=== PATIENT | female | born 1955 | race Two or more races ===

== ENCOUNTER → 2022-08-14 | Outpatient (CLI) | payer OTHER ==
[2022-08-14 11:24] LABS: Basophils # (auto) 0 10 ^3/uL (0-0.2); Basophils % (auto) 0.5 % (0.0-2.0); Eosinophils # (auto) 0.2 10 ^3/uL (0-0.8); Eosinophils % (auto) 2.2 % (0.0-7.0); Hemoglobin 12.3 g/dL (12.2-16.2); Lymphocytes % (auto) 29.1 % (10.0-50.0); Mean Corpuscular Hemoglobin 27.2 pg (28.0-32.0); Mean Corpuscular Hgb Conc. 32.5 g/dL (32.0-36.0); Mean Corpuscular Volume 83.8 fL (80.0-100.0); Monocytes # (auto) 0.6 10 ^3/uL (0-1.3); Monocytes % (auto) 5.7 % (0.0-12.0); Neutrophils # (auto) 6.5 10 ^3/uL (1.6-8.6); Neutrophils % (auto) 62.5 % (37.0-80.0); Red Blood Cells 4.53 10^6/uL (4.0-5.20); White Blood Cell 10.4 10^3/uL (4.4-10.8)
[2022-08-14 12:05] LABS: Urine Bacteria FEW /hpf (None Seen); Urine Blood Negative /uL (Negative); Urine Hyaline Cast FEW /lpf (0 - 2); Urine Mucus FEW (None Seen); Urine Specific Gravity 1.013 (1.001-1.035); Urine WBC 12 /hpf (0 - 5)
[2022-08-14 13:01] LABS: Albumin 3.4 g/dL (3.4-5.0); Calcium 9.4 mg/dL (8.5-10.1)
[2022-08-14 13:10] LABS: BUN/Creatinine Ratio 9.1; Bilirubin, Total 0.3 mg/dL (0.2-1.0); Total Protein 7.8 g/dL (6.4-8.2)
== END | disposition home or self-care (01) ==
LOC: LAB 11:07
PROVIDERS: ATTEND Internal Medicine
DX: I10 Essential (primary) hypertension (principal); R73.03 Prediabetes; E66.9 Obesity, unspecified
CPT/HCPCS: 36415; 80053; 80061; 81001; 82306; 83036; 84439; 84443; 85025

== ENCOUNTER → 2022-09-02 | Outpatient (CLI) | payer OTHER ==
[2022-09-02 14:12] LABS: Urine Bacteria NONE SEEN /hpf (None Seen); Urine Blood Negative /uL (Negative); Urine Specific Gravity 1.013 (1.001-1.035); Urine WBC 2 /hpf (0 - 5)
[2022-09-02 14:29] LABS: Albumin 3.5 g/dL (3.4-5.0); Bilirubin, Direct 0.1 mg/dL (0-0.2); Bilirubin, Total 0.4 mg/dL (0.2-1.0); Total Protein 7.8 g/dL (6.4-8.2)
== END | disposition home or self-care (01) ==
LOC: LAB 13:36
PROVIDERS: ATTEND Internal Medicine
DX: R82.90 Unspecified abnormal findings in urine (principal); E78.5 Hyperlipidemia, unspecified
CPT/HCPCS: 36415; 80076; 81001; 87086

== ENCOUNTER 2023-09-03 10:18 | Day surgery (SDC) | payer OTHER, MEDICAID ==
[2023-08-29 11:56] LABS: Basophils # (auto) 0 10 ^3/uL (0-0.2); Basophils % (auto) 0.4 % (0.0-2.0); Eosinophils # (auto) 0.3 10 ^3/uL (0-0.8); Eosinophils % (auto) 2.5 % (0.0-7.0); Hematocrit 38.7 % (36.0-46.0); Hemoglobin 12.7 g/dL (12.2-16.2); Lymphocytes # (auto) 2.8 10 ^3/uL (0.4-5.4); Lymphocytes % (auto) 24.7 % (10.0-50.0); Mean Corpuscular Hemoglobin 27.8 pg (28.0-32.0); Mean Corpuscular Hgb Conc. 32.8 g/dL (32.0-36.0); Mean Corpuscular Volume 84.9 fL (80.0-100.0); Monocytes # (auto) 0.7 10 ^3/uL (0-1.3); Monocytes % (auto) 6.3 % (0.0-12.0); Neutrophils # (auto) 7.4 10 ^3/uL (1.6-8.6); Neutrophils % (auto) 66.1 % (37.0-80.0); Red Blood Cells 4.56 10^6/uL (4.0-5.20); Red Cell Distribution Width 15.7 % (11.8-14.3); White Blood Cell 11.3 10^3/uL (4.4-10.8)
[2023-08-29 12:12] LABS: INR 0.98 (0.9-1.15); Partial Thromboplastin Time 30.2 SEC (24.5-34.5); Prothrombin Time 10.3 sec (9.3-11.8)
[2023-08-29 12:39] LABS: Urine Bacteria FEW /hpf (None Seen); Urine Blood Negative /uL (Negative); Urine Clarity HAZY (Clear); Urine Color Yellow (Yellow); Urine Protein, UAD Negative (Negative); Urine Specific Gravity 1.013 (1.001-1.035); Urine Urobilinogen Normal (Negative); Urine WBC 85 /hpf (0 - 5)
[2023-08-29 12:50] LABS: Alanine Aminotransferase 13 U/L (7-40); Albumin 4.4 g/dL (3.2-4.8); Alkaline Phosphatase 103 U/L (46-116); Anion Gap 7 (5-15); Aspartate Aminotransferase 14 U/L (13-40); BUN/Creatinine Ratio 8.1 (10.0-20.0); Bilirubin, Total 0.5 mg/dL (0.2-1.0); Blood Urea Nitrogen 8 mg/dL (9-23); Calcium 9.8 mg/dL (8.7-10.4); Carbon Dioxide 27 mmol/L (20-30); Chloride 108 mmol/L (98-107); Glucose 126 mg/dL (74-106); Potassium 3.2 mmol/L (3.5-5.1); Sodium 142 mmol/L (136-145); Total Protein 7.7 g/dL (5.7-8.2)
[~2023-09-03] VITALS: Ht 152.4 cm; Wt 122.5 kg
[~2023-09-03 10:18] MED LIST: ALBUAER3 IN; ALL100T PO; AMLO1TAB23 PO; ATOR20TA50 PO; BUDE1AER5 IN; DULO20CA PO; FURO40TA4 PO; HYDR-4297 PO; HYDR1SYP3 PO; HYOS0.1250 PO; LOSA100T58 PO; LUBI24CA6 PO; METH4TAB47 PO; METO25TA5 PO; MONT-8 OR; PANT40TA2 PO
[2023-09-03] MEDS ORDERED: SODIUM CHLORIDE LOCK 10 ML ONE (10:23)
[2023-09-03 11:36] VITALS: O2SAT 93
[2023-09-03] MEDS: MIDAZOLAM HCL 5 MG/ML-1ML VIAL ONE (11:44)
[2023-09-03] MEDS: diphenhdrAMINE HCL 50 MG/1 ML VL ONE (11:44)
[2023-09-03] MEDS: fentaNYL CITRATE 100 MCG/2 ML VL ONE (11:44)
[2023-09-03 12:07] VITALS: TEMP 98.7; O2SAT 100
[2023-09-03 12:52] VITALS: BP 154/99; PULSE 55; RESP 20; O2SAT 95
== END 2023-09-03 14:00 | disposition home or self-care (01) ==
LOC: GI 10:18
PROVIDERS: ATTEND Internal Medicine Gastroenterology
DX: R10.32 Left lower quadrant pain (principal); D12.3 Benign neoplasm of transverse colon; K64.8 Other hemorrhoids; K63.89 Other specified diseases of intestine; I10 Essential (primary) hypertension; E78.5 Hyperlipidemia, unspecified; J45.909 Unspecified asthma, uncomplicated; M10.9 Gout, unspecified; E66.9 Obesity, unspecified; Z88.6 Allergy status to analgesic agent; Z82.49 Family history of ischemic heart disease and other diseases of the circulatory system; Z80.8 Family history of malignant neoplasm of other organs or systems; Z79.899 Other long term (current) drug therapy; Z98.890 Other specified postprocedural states
CPT/HCPCS: 36415; 45385; 80053; 81001; 85025; 85610; 85730; 88305; J1200; J2250; J3010; J7030; 99152

== ENCOUNTER 2024-03-22 15:03 | Emergency (ER) | payer OTHER, MEDICAID ==
[~2024-03-22] VITALS: Ht 152.4 cm; Wt 121.2 kg
[~2024-03-22 15:03] MED LIST changes: -ALL100T PO; +DICY-89 PO; -HYDR-4297 PO; +HYDR10SY18 PO; -HYDR1SYP3 PO; +HYDR50TA47 PO; +LOSA-535 PO; -LOSA100T58 PO; -LUBI24CA6 PO; +LUBI24CA7 PO; +METH4TAB44 PO; -METH4TAB47 PO; +ROSU20TA14 PO; +ZONI100C43 PO
[2024-03-22 15:53] LABS: Basophils # (auto) 0.1 10 ^3/uL (0-0.2); Basophils % (auto) 0.5 % (0.0-2.0); Eosinophils # (auto) 0.3 10 ^3/uL (0-0.8); Eosinophils % (auto) 2.8 % (0.0-7.0); Hematocrit 36.5 % (36.0-46.0); Hemoglobin 12.6 g/dL (12.2-16.2); Lymphocytes # (auto) 2.8 10 ^3/uL (0.4-5.4); Lymphocytes % (auto) 23.6 % (10.0-50.0); Mean Corpuscular Hgb Conc. 34.5 g/dL (32.0-36.0); Mean Corpuscular Volume 84.1 fL (80.0-100.0); Monocytes # (auto) 0.9 10 ^3/uL (0-1.3); Monocytes % (auto) 7.4 % (0.0-12.0); Neutrophils # (auto) 7.8 10 ^3/uL (1.6-8.6); Neutrophils % (auto) 65.7 % (37.0-80.0); Platelet Count (auto) 322 10^3/uL (140-450); Red Blood Cells 4.34 10^6/uL (4.0-5.20); Red Cell Distribution Width 15.2 % (11.8-14.3); White Blood Cell 11.9 10^3/uL (4.4-10.8)
[2024-03-22 16:04] LABS: Chloride 106 mmol/L (98-107); Potassium 2.9 mmol/L (3.5-5.1); Sodium 141 mmol/L (136-145)
[2024-03-22 16:05] LABS: Anion Gap 9 (5-15); Calcium 10.6 mg/dL (8.7-10.4); Carbon Dioxide 26 mmol/L (20-30)
[2024-03-22 16:10] LABS: BUN/Creatinine Ratio 7.8 (10.0-20.0); Blood Urea Nitrogen 10 mg/dL (9-23); Glucose 119 mg/dL (74-106)
[2024-03-22] MEDS: POTASSIUM CHL 20 Meq TABLET PO ONE (18:13)
[2024-03-22 18:19] VITALS: BP 129/65; PULSE 63; RESP 15; TEMP 98; O2SAT 97
== END 2024-03-22 18:21 | disposition home or self-care (01) ==
LOC: ER 15:03
DX: E87.6 Hypokalemia (principal); R53.1 Weakness; I10 Essential (primary) hypertension; E78.5 Hyperlipidemia, unspecified; Z98.890 Other specified postprocedural states; Z88.8 Allergy status to other drugs, medicaments and biological substances; Z79.899 Other long term (current) drug therapy
CPT/HCPCS: 36415; 71046; 80048; 85025; 93005

== ENCOUNTER 2024-12-01 14:52 | Emergency (ER) | payer OTHER, MEDICAID ==
[~2024-12-01] VITALS: Ht 152.4 cm; Wt 120.8 kg
--- NOTE | 2024-12-01 16:45 | DVH ---
EXAM: XR Right Knee, 3 Views CLINICAL INDICATION: fall. r/o fracture TECHNIQUE: Three views of the right knee. COMPARISON: None FINDINGS: BONES/JOINTS: [id number] tricompartment degenerative changes. No acute fracture. No disloca tion. SOFT TISSUES: Unremarkable. OTHER FINDINGS: . . IMPRESSION: Ewya-gv-[id number] tricompartment degenerative changes.
[2024-12-01 16:50] VITALS: BP 133/64; PULSE 64; RESP 17; TEMP 98.1; O2SAT 97
[2024-12-01 16:51] LABS: Basophils # (auto) 0.1 10 ^3/uL (0-0.2); Basophils % (auto) 0.4 % (0.0-2.0); Eosinophils # (auto) 0.3 10 ^3/uL (0-0.8); Eosinophils % (auto) 2.2 % (0.0-7.0); Hematocrit 38.8 % (36.0-46.0); Hemoglobin 12.6 g/dL (12.2-16.2); Lymphocytes % (auto) 23.9 % (10.0-50.0); Mean Corpuscular Hgb Conc. 32.4 g/dL (32.0-36.0); Mean Corpuscular Volume 83.3 fL (80.0-100.0); Monocytes # (auto) 0.8 10 ^3/uL (0-1.3); Monocytes % (auto) 6.5 % (0.0-12.0); Neutrophils # (auto) 8.5 10 ^3/uL (1.6-8.6); Platelet Count (auto) 349 10^3/uL (140-450); Red Blood Cells 4.65 10^6/uL (4.0-5.20); Red Cell Distribution Width 15.6 % (11.8-14.3); White Blood Cell 12.7 10^3/uL (4.4-10.8)
[2024-12-01 17:01] LABS: Sodium 144 mmol/L (136-145)
[2024-12-01 17:02] LABS: Anion Gap 8 (5-15); Carbon Dioxide 28 mmol/L (20-31)
[2024-12-01 17:03] LABS: Urine Bacteria MANY /hpf (None Seen); Urine Blood Negative /uL (Negative); Urine Clarity Turbid (Clear); Urine Color Yellow (Yellow); Urine Hyaline Cast FEW /lpf (0 - 2); Urine Mucus FEW (None Seen); Urine Protein, UAD Negative (Negative); Urine Specific Gravity 1.014 (1.001-1.035); Urine Squamous Epithelial Cell MOD /hpf (<5); Urine Urobilinogen Normal (Negative); Urine WBC 35 /HPF (0-5); Urine WBC Clumps PRESENT /hpf (None Seen); Urine pH 5.5 (5.0-9.0)
[2024-12-01 17:06] LABS: Calcium 10.9 mg/dL (8.7-10.4); Chloride 108 mmol/L (98-107); Potassium 3.4 mmol/L (3.5-5.1)
[2024-12-01 17:07] LABS: BUN/Creatinine Ratio 10.8 (10.0-20.0); Blood Urea Nitrogen 13 mg/dL (9-23); Glucose 104 mg/dL (74-106)
--- NOTE | 2024-12-01 17:10 | ED.PDOC ---
Musculoskeletal HPI Comments A 69 year old female presents to the ED c/o right knee pain s/p fall. Patient states she accidentally twisted her right knee and fell 2-1/2 weeks ago. Patient reports she has been experiencing right knee pain with mild swelling since this injury. Patient states she went to her primary care physician today and was instructed to come to the ED for evaluation. Patient reports her pain is worse with movement and when bearing weight. Denies head injury, neck injury, LOC, fever, SOB, chest pain, abdominal pain, nausea, vomiting, diarrhea, headache, dizziness, vision changes, or numbness/tingling of extremities. No other symptoms or modifying factors reported at this time. Patient is alert and oriented x4 and has a stable gait. Chief Complaint: Lower Extremity Time Seen by MD: 15:57 Primary Care Provider: SRI Reviewed Notes: Nurses Notes, Medications, Allergies Allergies: Coded Allergies: Codeine (Verified Allergy, Mild, rash, 03/17/24) Home Meds Active Scripts Diclofenac Sodium (Topical) (Voltaren Arthritis Pain) 1 % Gel, 1 APPLIC EX Q6HP PRN for 10 Days, #60 GRAMS 0 Refills Prov:MCKENZIE OCHOA TRAVELER CHANGER 12/01/24 Acetaminophen (Acetaminophen) 500 Mg Tab, 500 MG PO Q8HP PRN for 10 Days, #30 TAB 0 Refills Prov:MCKENZIE OCHOA TRAVELER CHANGER 12/01/24 Nitrofurantoin Monohydrate Mac (Macrobid) 100 Mg Cap, 100 MG PO BID for 7 Days, #14 CAP 0 Refills Prov:MCKENZIE OCHOA TRAVELER CHANGER 12/01/24 Reported Medications Zonisamide (Zonisamide) 100 Mg Cap, 100 MG PO, CAP 03/17/24 Rosuvastatin Calcium (Crestor) 20 Mg Tab, 1 TAB PO DAILY, #30 TAB 5 Refills 03/17/24 Dicyclomine Hcl (Dicyclomine Hcl) 10 Mg Cap, 10 MG PO QID for 30 Days, MG 03/17/24 Budesonide-Formoterol Fumarate (Budesonide/Formoterol Fum 80-4.5 Mcg/Act) 1 Aer Aer, 1 AER IN, AER 02/19/23 Albuterol Sulfate (VENTOLIN MDI) 90 Mcg Ih, 90 MCG IN, INH 02/19/23 Lubiprostone (Amitiza) 24 Mcg Cap, 24 MCG PO, CAP 02/19/23 Montelukast Sodium (MONTELUKAST SODIUM) 10 Mg Tab, 10 MG OR HS, TAB 02/19/23 Hydralazine Hcl (Hydralazine Hcl) 50 Mg Tab, 50 MG PO, TAB 02/19/23 Furosemide (Furosemide) 40 Mg Tab, 40 MG PO DAILY, TAB 02/19/23 Amlodipine Besylate (Amlodipine Besylate) 10 Mg Tab, 10 MG PO DAILY, TAB 02/19/23 Hyoscyamine Sulfate (Levsin) 0.125 Mg Tab, 0.125 MG PO, TAB 02/19/23 Hydroxyzine Hcl (Hydroxyzine Hcl) 10 Mg/5 Ml Syp, 10 MG PO DAILY, SYP 02/19/23 Pantoprazole Sodium Sesquihydr (Protonix) 40 Mg Tab, 40 MG PO DAILY, #30 TAB 02/19/23 Metoprolol Tartrate (Metoprolol Tartrate) 25 Mg Tab, 25 MG PO DAILY, TAB 02/19/23 Duloxetine Hcl (Cymbalta) 20 Mg Cap, 20 MG PO DAILY, CAP 02/19/23 Losartan Potassium (Losartan Potassium) 100 Mg Tab, 100 MG PO DAILY, TAB 02/19/23 Atorvastatin Calcium (ATORVASTATIN CALCIUM) 20 Mg Tab, 20 MG PO DAILY, TAB 02/19/23 Methylprednisolone (Methylprednisolone) 4 Mg Tab, 4 MG PO DAILY, TAB 02/19/23 Information Source: Patient Mode of Arrival: Ambulatory Location: Right Extremity Location: Knee Timing: Weeks Prehospital treatment: None Severity: Moderate Able to Move Extremity: Yes Bear Weight: Limited Pain: Moderate Mechanism: Twisting Circumstances: Fall Onset of Symptoms: After Trauma Symptoms: Pain DVT Risk Factors: NONE Last Tetanus: Unknown Associated signs and symptoms: Knee pain Past Medical History PAST MEDICAL HISTORY: Arthritis, High Lipids, HTN Surgical History: Cholecystectomy, Hysterectomy CHIEF OF PRODUCTION History: No Pertinent CHIEF OF PRODUCTION History Family History Family History: Reviewed,noncontributory to illness, Family hx of DM, Family hx of heart nicolle Social History Smoker: Non-Smoker Alcohol: Denies ETOH Use Drugs: Denies Drug Use Lives In: Home Constitutional: denies: chills, diaphoresis, fatigue, fever, malaise, sweats, weakness, others EENTM: denies: blurred vision, double vision, ear bleeding, ear discharge, ear drainage, ear pain, ear ringing, eye pain, eye redness, hearing loss, mouth pain, mouth swelling, nasal discharge, nose bleeding, nose congestion, nose pain, photophobia, tearing, throat pain, throat swelling, voice changes, others Respiratory: denies: cough, hemoptysis, orthopnea, SOB at rest, shortness of breath, SOB with excertion, stridor, wheezing, others Cardiovascular: denies: chest pain, dizzy spells, diaphoresis, Dyspnea on exertion, edema, irregular heart beat, left arm pain, lightheadedness, palpitations, PND, syncope, others Gastrointestinal: denies: abdomen distended, abdominal pain, blood streaked bowels, constipated, diarrhea, dysphagia, difficulty swallowing, hematemesis, melena, nausea, poor appetite, poor fluid intake, rectal bleeding, rectal pain, vomiting, others Genitourinary: denies: abnormal vagina bleeding, burning, dyspareunia, dysuria, flank pain, frequency, hematuria, incontinence, pain, , vagina discharge, urgency, others Neurological: denies: dizziness, fainting, headache, left sided numbness, left sided weakness, numbness, paresthesia, pre-existing deficit, right sided numbness, right sided weakness, seizure, speech problems, tingling, tremors, weakness, others Musculoskeletal: reports: others (Right knee pain); denies: back pain, gout, joint pain, joint swelling, muscle pain, muscle stiffness, neck pain Integumetry: denies: bruises, change in color, change in hair/nails, dryness, laceration, lesions, lumps, rash, wounds, others Allergic/Immunocompromised: denies: Difficulty Healing, Frequent Infections, Hives, Itching, others Hematologic/Lymphatic: denies: anemia, blood clots, easy bleeding, easy bruising, swollen glands, others Endocrine: denies: excessive hunger, excessive sweating, excessive thirst, excessive urination, flushing, intolerance to cold, intolerance to heat, unexplained weight gain, unexplained weight loss, others Psychiatric: denies: anxiety, bipolar disorder, depression, hopeless, panic disorder, schizophrenia, sleepless, suicidal, others All Other Systems: Reviewed and Negative Physical Exam General Appearance: No Apparent Distress, Normal HEENT: Normal ENT Inspection, Pharynx Normal, TMs Normal Neck: Full Range of Motion, Non-Tender, Normal, Normal Inspection Respiratory: Chest Non-Tender, Lungs Clear, No Accessory Muscle Use, No Respiratory Distress, Normal Breath Sounds Cardiovascular: No Edema, No JVD, No Murmur, No Gallop, Regular Rate/Rhythm Breast Exam: Deferred Gastrointestinal: No Organomegaly, Non Tender, No Pulsatile Mass, Normal Bowel Sounds, Soft Genitalia: Deferred Pelvic: Deferred Rectal: Deferred Extremities: No calf tenderness, Normal capillary refill, Normal inspection, Normal range of motion, Non-tender, No pedal edema Musculoskeletal : Apperance: Normal Neurologic: Alert, natural science manager II-XII nml as Tested, No Motor Deficits, Normal Affect, Normal Mood, No Sensory Deficits, Other (Subjective pain with extension and flexion noted. No signs of deformity or injury. No Tenderness noted.) Cerebellar Function: Normal Reflexes: Normal Skin: Dry, Normal Color, Warm Lymphatic: No Adenopathy Was a procedure done? Was a procedure done?: No Other Procedure Procedure Right knee injection Indication DJD of right knee Anesthetic 4 mL of lidocaine Prep Sterile technique/preparation Success An incision was made into the patient's right inferior lateral patella region and 40 mg of Kenalog was injected into the patient's right knee. Informed consent obtained: Yes Risks, benefits, and alternati: Yes Differential Diagnosis EXT Differential Diagnosis: Fracture, Sprain, DJD, Strain, Arthritis X-Ray, Labs, Meds, VS Vital Signs Date Time Temp Pulse Resp B/P (MAP) Pulse Ox O2 Delivery O2 Flow Rate FiO2 12/01/24 16:50 98.1 64 17 133/64 (87) 97 98.1 12/01/24 16:50 64 17 97 Room Air 12/01/24 15:00 98.2 78 20 96/51 (66) 96 98.2 Lab Test 12/01/24 16:38 12/01/24 16:26 Range/Units White Blood Count 12.7 H 4.4-10.8 10^3/uL Red Blood Count 4.65 4.0-5.20 10^6/uL Hemoglobin 12.6 12.2-16.2 g/dL Hematocrit 38.8 36.0-46.0 % Mean Corpuscular Volume 83.3 80.0-100.0 fL Mean Corpuscular Hemoglobin 27.0 L 28.0-32.0 pg Mean Corpuscular Hemoglobin Concent 32.4 32.0-36.0 g/dL Red Cell Distribution Width 15.6 H 11.8-14.3 % Platelet Count 349 140-450 10^3/uL Mean Platelet Volume 8.5 6.9-10.8 fL Neutrophils (%) (Auto) 67.0 37.0-80.0 % Lymphocytes (%) (Auto) 23.9 10.0-50.0 % Monocytes (%) (Auto) 6.5 0.0-12.0 % Eosinophils (%) (Auto) 2.2 0.0-7.0 % Basophils (%) (Auto) 0.4 0.0-2.0 % Neutrophils # (Auto) 8.5 1.6-8.6 10 ^3/uL Lymphocytes # (Auto) 3.0 0.4-5.4 10 ^3/uL Monocytes # (Auto) 0.8 0-1.3 10 ^3/uL Eosinophils # (Auto) 0.3 0-0.8 10 ^3/uL Basophils # (Auto) 0.1 0-0.2 10 ^3/uL Nucleated Red Blood Cells 0.0 % Sodium Level 144 136-145 mmol/L Potassium Level 3.4 L 3.5-5.1 mmol/L Chloride Level 108 H 98-107 mmol/L Carbon Dioxide Level 28 20-31 mmol/L Anion Gap 8 5-15 Blood Urea Nitrogen 13 9-23 mg/dL Creatinine 1.20 H 0.550-1.02 mg/dL Glomerular Filtration Rate Calc 48 >90 mL/min BUN/Creatinine Ratio 10.8 10.0-20.0 Serum Glucose 104 74-106 mg/dL Calcium Level 10.9 H 8.7-10.4 mg/dL Urine Color Yellow Yellow Urine Clarity Turbid H Clear Urine pH 5.5 5.0-9.0 Urine Specific [place] 1.014 1.001-1.035 Urine Protein Negative Negative Urine Ketones Negative Negative Urine Blood Negative Negative /uL Urine Nitrite 1+ H Negative Urine Bilirubin Negative Negative Urine Urobilinogen Normal Negative mg/dL Urine Leukocyte Esterase 3+ Negative /uL Urine RBC 2 0 - 4 /hpf Urine WBC Clumps Present None Seen /hpf Urine Microscopic WBC 35 H 0-5 /HPF Urine Squamous Epithelial Cells Mod <5 /hpf Urine Bacteria Many H None Seen /hpf Urine Hyaline Casts Few 0 - 2 /lpf Urine Mucus Few None Seen Urine Glucose Normal Normal mg/dL Current Medications Medications (Trade) Dose Ordered Sig/Darrick Route Start Time Stop Time Status Last Admin Ceftriaxone Sodium (Rocephin) 1,000 mg ONCE ONCE IM 12/01/24 17:15 12/01/24 17:21 DC 12/01/24 17:42 EXAM: XR Right Knee, 3 Views CLINICAL INDICATION: fall. r/o fracture TECHNIQUE: Three views of the right knee. COMPARISON: None FINDINGS: BONES/JOINTS: Newp-yx-[id number] tricompartment degenerative changes. No acute fracture. No dislocation. SOFT TISSUES: Unremarkable. OTHER FINDINGS: . . IMPRESSION: [id number] tricompartment degenerative changes. ATED BY: DEBORAH DOUGHERTY MD DICTATED DATE/TIME: 12/01/241641 SIGNED BY: DEBORAH DOUGHERTY MD SIGNED DATE/TIME: 12/01/241641 CC: X-Ray, Labs, Meds, VS Comment A 69 year old female presents to the ED c/o right knee pain s/p fall for the past 2 weeks. History and findings consistent with Patient well appearing. VSS. Given History, Exam, and Workup I have also considered DJD of right knee, internal derangement of knee, sprain of knee, fracture, contusion Patient arrives alert and oriented, ABC's intact, afebrile, vital signs stable, saturating well in room air CBC was ordered to exclude anemia, blood loss, or infection. BMP was ordered to exclude electrolyte abnormalities, renal failure, dehydration, hyperglycemia Urinalysis was ordered to rule out UTI or hematuria. Diagnostic imaging ordered by me and results interpreted by radiology : XR Knee RT Results: IMPRESSION: [id number] tricompartment degenerative changes. ATED BY: DEBORAH DOUGHERTY MD DICTATED DATE/TIME: 12/01/241641 SIGNED BY: DEBORAH DOUGHERTY MD SIGNED DATE/TI ME: 12/01/241641 CC: Labs in the ED showed: Leukocytes 3+, nitrites 1+, WBC 35, BACT Many Patient was given: Kenalog 40 mg, lidocaine 4 mL, Rocephin 1 g IM. Tolerated medications with no adverse reaction. Patient was also informed that we recommend against routine use of the intra articular glucocorticoid injections for knee pain. Patient was informed that we limit the use of intra-articular injections to patients with moderate to severe pain and to have failed other treatment options and who are seeking short-term pain relief. Patient was also informed that this procedure is not routinely recommended in clinical practice and patient should not receive multiple nor repetitive injections. Patient was also informed that serial injections like every 3 months are discouraged due to potential negative effects on the progression of cartilage damage in the knee osteoarthritis patient's Risks and benefits of steroid injections were discussed with patient and patient gave verbal consent to the procedure. Voltaren gel as needed for the pain Recommend light walking under the sun for 30 minutes a day Avoiding running jogging high-impact activities Stretch as tolerated Ice 3x/day for 5 minutes Wear knee brace for stability as needed, elevate leg swelling aggravated Additional MDM Review of External, Non-ED records: External records reviewed. Discussion with independent historian (EMS, family) history obtained from the patient/parents (if applicable) at bedside Chronic conditions affecting care: None Social determinants of health affecting care: None Procedures Performed: None Critical Care: None Consideration of admission (observation or admission): I considered escalation of care to admission for this patient, however given the reassuring workup, the patient is safe for outpatient management. Discussion with the Radiology: No Tests considered but not performed: None Prescription medication considered and given: Rafyd I have consulted Dr. Bella regarding this patient's case and they agree with my plan of care and disposition of the patient. Images Reviewed?: Images reviewed and evaluated by me Time of 1ST Reevaluation: 17:00 Reevaluation 1ST: Improved Patient Education/Counseling: Diagnosis, Treatment, Need For Follow Up Family Education/Counseling: Diagnosis, Treatment, Need For Follow Up Departure 1 Departure Time of Disposition: 17:27 Impression: Primary Impression: Arthritis of knee, right Additional Impression: UTI (urinary tract infection) Qualified Codes: N30.00 - Acute cystitis without hematuria Disposition: 01 HOME / SELF CARE / HOMELESS Condition: Stable Additional Instructions: Follow up with PCP in 1-2 days. Take medications as prescribed. Return to ED for any new or worsening symptoms. e-Prescriptions Diclofenac Sodium (Topical) (Voltaren Arthritis Pain) 1 % Gel 1 APPLIC EX Q6HP PRN for 10 Days, #60 GRAMS 0 Refills Prov: MCKENZIE OCHOA TRAVELER CHANGER 12/01/24 Acetaminophen (Acetaminophen) 500 Mg Tab 500 MG PO Q8HP PRN for 10 Days, #30 TAB 0 Refills Prov: MCKENZIE OCHOA NP 12/01/24 Nitrofurantoin Monohydrate Mac (Macrobid) 100 Mg Cap 100 MG PO BID for 7 Days, #14 CAP 0 Refills Prov: MCKENZIE OCHOA NP 12/01/24 Discharged With: Self Critical Care Note Critical Care Time?: No Stability Stability form required: No Heart Score Heart Score: Heart Score Response (Comments) Value History N/A 0 EKG N/A 0 Age N/A 0 Risk Factors N/A 0 Troponin N/A 0 Total 0 I personally scribed for MCKENZIE OCHOA NP ([email or web address]) on 12/01/24 at 17:10. Electronically submitted by Sergo Whitehead ([email or web address]). I personally scribed for MCKENZIE OCHOA NP ([email or web address]) on 12/01/24 at 17:26. Electronically submitted by Sergo Whitehead ([email or web address]). MCKENZIE OCHOA NP Dec 01, 2024 17:10
[2024-12-01] MEDS: TRIAMCINOLONE 40MG/ML 1ML VIAL IX ONE (17:17)
[2024-12-01] MEDS: LIDOCAINE 1% HCL (LOCAL ANESTH.) INJ 20ML MDV ID ONE (17:17)
[2024-12-01] MEDS ORDERED: NITR-87 PO (17:27)
[2024-12-01] MEDS ORDERED: DICL1GEL59 EX (17:28)
[2024-12-01] MEDS ORDERED: ACET500T58 PO (17:28)
[2024-12-01] MEDS: cefTRIAXone SOD 1,000 MG VL IM ONE (17:42)
== END 2024-12-01 17:55 | disposition home or self-care (01) ==
LOC: ER 14:58
DX: M17.11 Unilateral primary osteoarthritis, right knee (principal); N39.0 Urinary tract infection, site not specified; I10 Essential (primary) hypertension; E78.5 Hyperlipidemia, unspecified; M19.90 Unspecified osteoarthritis, unspecified site; Z90.710 Acquired absence of both cervix and uterus; Z90.49 Acquired absence of other specified parts of digestive tract; Z88.5 Allergy status to narcotic agent; Z79.52 Long term (current) use of systemic steroids; Z79.899 Other long term (current) drug therapy; X50.1XXA Overexertion from prolonged static or awkward postures, initial encounter; Y93.89 Activity, other specified; Y92.89 Other specified places as the place of occurrence of the external cause; Y99.8 Other external cause status
CPT/HCPCS: 20610; 36415; 73562; 80048; 81001; 85025; 96372; 99284; J0696; J2003; J3301

== ENCOUNTER → 2025-01-28 | Outpatient (CLI) | payer OTHER, MEDICAID ==
[~2025-01-28] MED LIST changes: +ACET500T58 PO; +DICL1GEL59 EX; +NITR-87 PO
[2025-01-28 11:39] LABS: Alanine Aminotransferase 13 U/L (7-40); Albumin 4.5 g/dL (3.2-4.8); Alkaline Phosphatase 97 U/L (46-116); Anion Gap 9 (5-15); BUN/Creatinine Ratio 12.5 (10.0-20.0); Bilirubin, Total 0.3 mg/dL (0.2-1.0); Blood Urea Nitrogen 15 mg/dL (9-23); Carbon Dioxide 27 mmol/L (20-31); Potassium 3.6 mmol/L (3.5-5.1); Sodium 143 mmol/L (136-145); Total Protein 7.1 g/dL (5.7-8.2)
[2025-01-28 11:50] LABS: Chloride 107 mmol/L (98-107); Glucose 110 mg/dL (74-106)
[2025-01-28 11:56] LABS: Calcium 10.0 mg/dL (8.7-10.4)
== END | disposition home or self-care (01) ==
LOC: LAB 10:28
PROVIDERS: ATTEND Internal Medicine
DX: I13.0 Hypertensive heart and chronic kidney disease with heart failure and stage 1 through stage 4 chronic kidney disease, or unspecified chronic kidney disease (principal); N18.9 Chronic kidney disease, unspecified; I50.9 Heart failure, unspecified
CPT/HCPCS: 36415; 80053